=== PATIENT | female | born 1990 | race Caucasian/White ===

== ENCOUNTER → 2020-05-20 | Outpatient (CLI) | payer BC, OTHER | LOC: DIA.ED | DX: O24.419 Gestational diabetes mellitus in pregnancy, unspecified control (principal) | CPT/HCPCS: G0108 ==

== ENCOUNTER → 2020-06-03 | Outpatient (CLI) | payer BC, OTHER | LOC: DIA.ED 09:29 | DX: O24.419 Gestational diabetes mellitus in pregnancy, unspecified control (principal); Z79.4 Long term (current) use of insulin | CPT/HCPCS: G0108 ==

== ENCOUNTER → 2020-06-10 | Outpatient (CLI) | payer BC, OTHER | LOC: DIA.ED 08:40 | DX: O24.419 Gestational diabetes mellitus in pregnancy, unspecified control (principal); Z79.4 Long term (current) use of insulin | CPT/HCPCS: G0108 ==

== ENCOUNTER → 2020-06-28 | Outpatient (CLI) | payer BC, OTHER ==
[~2020-06-28] MED LIST: LANTUS100 U/ML SQ; MOTRIN 800800 MG/TAB PO; PERCOCET 325 MG1 TA2 PO
== END ==
LOC: DIA.ED
DX: O24.419 Gestational diabetes mellitus in pregnancy, unspecified control (principal); Z79.4 Long term (current) use of insulin
CPT/HCPCS: G0108

== ENCOUNTER → 2020-07-14 | Outpatient (CLI) | payer BC, OTHER | LOC: ZCOL.LAB 08:00 | DX: Z20.822 Contact with and (suspected) exposure to COVID-19 (principal) ==

== ENCOUNTER 2020-07-15 09:28 | Inpatient (IN) | payer BC, OTHER ==
[~2020-07-15] VITALS: Ht 160 cm; Wt 96.4 kg
--- NOTE | 2020-07-15 19:00 | NUR ---
Ambulatory to unit for cytotech induction, accompanied by spouse. Oriented to room, monitor, plan of care. Questions invited and answered.
[2020-07-15 19:20] VITALS: BP 131/75; PULSE 108; TEMP 98
[2020-07-15 20:06] LABS: BASO % 0.4 % (0.0-2.0); EOS # 0.1 (0.0-0.7); EOS % 0.6 % (0-4.0); GRAN # 5.8 (1.4-6.5); GRAN % 73.4 % (42.2-75.2); HEMATOCRIT 37.3 % (37.0-47.0); HEMOGLOBIN 12.6 g/dl (12.5-16.0); LYMPH # 1.3 (1.2-3.4); LYMPH % 16.8 % (20.0-51.0); MEAN CELL VOLUME 91 fl (80.0-100.0); MEAN CORPUSCULAR HEMOGLOBIN 31 pg (27.0-31.0); MEAN CORPUSCULAR HGB CONC 34 g/dl (33.0-37.0); MONO # 0.6 (0.1-0.6); MONO % 7.8 % (1.7-9.3); PLATELET COUNT 277 K/mm3 (130-400); RED BLOOD COUNT 4.12 M/mm3 (4.10-5.30); REDCELL DISTRIBUTION WIDTH-CV 13.4 % (11.5-14.5)
[2020-07-15 20:15] VITALS: BP 112/59; PULSE 97
[2020-07-15 20:45] VITALS: BP 110/59; PULSE 100
[2020-07-15] MEDS ORDERED: LANTUS100 U/ML SQ (20:45)
[2020-07-15 21:15] VITALS: BP 108/57; PULSE 96
[2020-07-15 22:00] VITALS: BP 130/73; PULSE 96
[2020-07-16] VITALS (59 sets, daily range): BP systolic 101–162; BP diastolic 54–86; PULSE 67–110; TEMP 98–100.1
--- NOTE | 2020-07-16 00:05 | NUR ---
Pt denies feeling cramps or contractions. Cytotech placed. po Vistaril given, lights dimmed encouraged.
--- NOTE | 2020-07-16 02:30 | NUR ---
Awakened for vitals. Up to void. Denies needs
--- NOTE | 2020-07-16 05:25 | NUR ---
Resting, stirs briefly when nurse @ bedside/monitor.
--- NOTE | 2020-07-16 06:15 | NUR ---
CARE OF THE PT ASSUMED AT THIS TIME. REPORT RECEIVED FROM SHEILA WREN.
--- NOTE | 2020-07-16 06:30 | NUR ---
PT AWAKENS ON THIS NURSE ENTERING THE ROOM. BLOOD SUGAR TAKEN BY PT AND IS 97. UP TO BATHROOM. BACK TO BED AND BACK ON MONITORS. PLAN OF CARE REVIEWED.
--- NOTE | 2020-07-16 07:30 | NUR ---
DR MILLER IN AT 0707. SVE /-2. AROM AT 0710 WITH CLEAR FLUID RETURNED. PERICARE PROVIDED.
--- NOTE | 2020-07-16 08:15 | NUR ---
LR INFUSING PER IV AND PITOCIN STARTED AT 2MU PER ORDER AT 0815
--- NOTE | 2020-07-16 09:30 | NUR ---
PT CRYING WITH CONTRACTIONS. DOES NOT WANT EPIDURAL YET. WANTS TO WAIT 30 MORE MINUTES.
--- NOTE | 2020-07-16 10:15 | NUR ---
PT SITTING UP FOR EPIDURAL. NUNU CORDERO, IN AT 1007 FOR EPIDURAL PLACEMENT. DIFFICULT TO MONITOR FHT'S WHILE PT SITTING UP.
--- NOTE | 2020-07-16 10:30 | NUR ---
SINGLE SHOT AT 1016 WITH NO ABNORMAL SIDE EFFECTS OBSERVED OR REPORTED. PT REPOSITIONED LYING DOWN AFTER EPIDURAL AND FHT'S ABLE TO BE MONITORED AGAIN AFTER EPIDURAL PLACEMENT.
--- NOTE | 2020-07-16 10:45 | NUR ---
CONTRACTIONS VARYING FROM TACHYSYSTOLE TO VERY 4 MINUTES. FHT'S WITH LATE DECEL AFTER EPISODE OF TACHYSYTOLE.
--- NOTE | 2020-07-16 11:00 | NUR ---
TACHYSYSTOLE REMAINS.LATE DECELS REMAIN WELL WITH MODERATE VARIABILITY. FLUID BOLUS STARTED. DR MILLER CALLS AT 1100 AND STATES SHE IS WATCHING THE MONITOR STRIP AND ADVISES TO NOT INCREASE PITOCIN AT THIS TIME.
--- NOTE | 2020-07-16 13:00 | NUR ---
DR MILLER HERE AT 1248. SVE 3-/-2. PITOCIN INCREASED TO 10MU PER DR NAJERA.
--- NOTE | 2020-07-16 14:30 | NUR ---
FHT'S WITH PROLONGED LATE DECEL TO THE 80'S. PITOCIN OFF AT 1421. REPOSITIONED WEDGE RIGHT WITH NO CHANGE AND THEN LEFT LATERAL WITH INCREASE IN HEART TONES GRADUALLY TO THE 150'S OVER 2 1/2 MINUTES. FLUID BOLUS INFUSING.
--- NOTE | 2020-07-16 14:45 | NUR ---
DR MILLER CALLED HERE AT 1440 ASKING IF THE PITOCIN IS OFF, REPORTED TURNED IT OFF WITH THE PROLONGED DECELERATIONS THAT WERE OCCURRING, REPOSITIONED PT LEFT LATERAL SO CONTRACTIONS ARE DIFFICULT TO MONITOR. WANTS PITOCIN TURNED BACK ON TO 10MU SINCE IT HAS NOT BEEN 30" SINCE IT WAS TURNED OFF. ASKED "YOU WANT THE PITOCIN TURNED BACK ON EVEN WITH PROLONGED LATE DECELS" AND STATES "YES BECAUSE THE HEART TONES ARE BACK UP." PITOCIN BACK ON 10MU AT 1443
--- NOTE | 2020-07-16 15:00 | NUR ---
PROLONGED LATE DECEL. REPOSITIONED PT TO WEDGE RIGHT AND ADJUSTED TOCO STRAPS IN ATTEMPT TO MONITOR CONTRACTIONS BETTER.
--- NOTE | 2020-07-16 15:15 | NUR ---
SVE 6-7/100/-2. CONTINUES WITH MODERATE VARIABILITY AND PROLONGED LATE DECELS. PHONED DR MILLER AT 1506 WITH THE ABOVE INFORMATION. SHE WANTS THE PITOCIN TO REMAIN AT 10MU
--- NOTE | 2020-07-16 15:45 | NUR ---
FHT'S DIFFICULT TO MONITOR. AUDIBLE IN THE 50'S. SVE 9-10/100/-2. PITOCIN OFF AT 1540 PRIOR TO SVE. REPOSITIONED LEFT LATERAL WITH RIGHT LEG IN STIRRUP. CALLED DR MILLER AT 1543 AND SPOKE WITH NURSE,JANIE, INFORMING OF DECEL TO THE 50'S AND SVE.
--- NOTE | 2020-07-16 15:48 | NUR ---
PITOCIN BACK ON AT 10MU FHT'S BACK TO 145 BASELINE.
--- NOTE | 2020-07-16 16:15 | NUR ---
DR MILLER CALLS AT 1614-SVE STATUS GIVEN. SHE WANTS PT CHECKED AND IF COMPLETE START PUSHING.
--- NOTE | 2020-07-16 16:30 | NUR ---
SVE /+1. PHONED DR MILLER AT 1620 WITH UPDATE ON SVE. PUSHING STARTED AT 162
--- NOTE | 2020-07-16 17:30 | NUR ---
DR MILLER CALLED AT 1728 SHE IS WONDERING ABOUT STATUS OF PUSHING. TOLD PUSHING IS GOING FAIR, THIS RN DOES NOT THINK BABY WILL DELIVERY IN THE NEXT HOUR. DR CONCERNED ABOUT TACHYCARDIA. MATERNAL TEMP 100.1. DR ON HER WAY TO EVALUATE
--- NOTE | 2020-07-16 17:45 | NUR ---
HEART RATE BASELINE 170. MATERNAL TEMP 99.3. DR MILLER HERE TO EVALUATE PUSHING AT 1740.
--- NOTE | 2020-07-16 18:00 | NUR ---
ANCEF 2MG GIVEN VIA IV PUMP PER DR MILLER'S ORDER.
--- NOTE | 2020-07-16 18:15 | NUR ---
DR MILLER IN AT 180. FHT'S DOWN TO THE 70'S. UNABLE TO MONITOR FHT'S ADEQUATELY. DR WANTS VACUUM TO BE USED FOR DELIVERY. PT PREPPED AND POSITIONED FOR DELIVERY. VACUUM APPLIED BY DR MILLRE. RIGHT MEDIOLATERAL EPISIOTOMY CUT BY AFTER 6 PULLS AND ONE POPOFF DELIVERY OF FEMALE AT 1812. TIGHT NUCHAL CORD REDUCED AFTER DELIVERY OF HEAD. DR REPORTED THE CORD RIPPED WHILE SHE WAS REDUCING IT. CORD CLAMPED AND CUT AND BABY TO RADIANT WARMER IMMEDIATELY. PITOCIN OFF AFTER DELIVERY OF BABY. DELIVERY OF PLACENTA SPONTANEOUSLY AT 1813. PT FEELING GREAT DEAL OF PAIN WHEN DR STARTS TO DO PERINEAL REPAIR. Jaspal LONDONO CRNA, IN TO DOSE EPIDURAL FOR REPAIR. PITOCIN STARTED AT 333ML/HR AFTER DELIVERY OF . DR MILLER ORDERED CORD GASES TO BE OBTAINED. Janak WILLIAMSON RN, AND Sofya JARRELL RN, ATTEMPTED TO OBTAIN CORD GASES WITHOUT SUCCESS DUE TO THE UMBILICAL CORD BEING RIPPED WHILE THE DR WAS REDUCING THE NUCHAL CORD. CORD BLOOD ALSO UNABLE TO BE OBTAINED FOR BLOOD TYPING.
--- NOTE | 2020-07-16 18:30 | NUR ---
REPAIR COMPLETE BY DR. LOMBARDO PERFORMED. ICE PACK TO PERINEUM. PT RESTING IN BED. FUNDUS FIRM WITH MINIMAL BLEEDING OBSERVED.
--- NOTE | 2020-07-16 18:45 | NUR ---
1845- FUNDUS UP AND TO THE LEFT, FIRM. STRAIGHT CATH FOR 150ML. FUNDUS AT UMBILICUS AFTER STRAIGHT CATH. URETHRAL AND CLITORAL AREA EDEMATOUS AND BRUISED. ANATOMY DIFFICULT TO IDENTIFY. DISCUSSED WITH PT THE POSSIBILITY OF HER HAVING A HARD TIME URINATING ON HER OWN DUE TO SWELLING. PT TOLERATED WELL.
--- NOTE | 2020-07-16 21:00 | NUR ---
2100- IV TO SALINE LOCK. PT ABLE TO LIFT LEGS UP OFF BED AND WOULD LIKE TO GO TO NURSERY TO SEE BABY. PT POSITIONED DANGLING ON EDGE OF BED. EPIDURAL CATHETER REMOVED CHARTED. NURSE ASSISTS PT TO STAND AND PIVOT INTO WHEELCHAIR. CLEAN PAD AND PANTIES PROVIDED AT THIS TIME WELL. PT TOLERATED WELL. PT TO NURSERY PER WHEELCHAIR WITH SPOUSE. PT DENIES FURTHER NEEDS AT THIS TIME. BELONGINGS MOVED TO ROOM 207.
[2020-07-17 03:40] VITALS: BP 111/69; PULSE 97; TEMP 97.9
[2020-07-17 07:30] VITALS: BP 129/7; PULSE 86; TEMP 98
[2020-07-17] MEDS ORDERED: MOTRIN 800800 MG/TAB PO (07:49)
[2020-07-17] MEDS ORDERED: PERCOCET 325 MG1 TA2 PO (07:49)
== END 2020-07-17 11:30 | disposition home or self-care (01) | DRG 805 ==
LOC: OB 09:28 → LDR 18:52 → OB 07-16 08:02
PROVIDERS: ADMIT Obstetrics & Gynecology
PROC: 10D07Z6 Extraction of Products of Conception, Vacuum, Via Natural or Artificial Opening (ICD-10-PCS; principal; 2020-07-16)
PROC: 10907ZC Drainage of Amniotic Fluid, Therapeutic from Products of Conception, Via Natural or Artificial Opening (ICD-10-PCS; 2020-07-16)
PROC: 3E0P7VZ Introduction of Hormone into Female Reproductive, Via Natural or Artificial Opening (ICD-10-PCS; 2020-07-16)
PROC: 0W8NXZZ Division of Female Perineum, External Approach (ICD-10-PCS; 2020-07-16)
DX: O24.424 Gestational diabetes mellitus in childbirth, insulin controlled (principal); O41.1230 Chorioamnionitis, third trimester, not applicable or unspecified; Z37.0 Single live birth; Z3A.38 38 weeks gestation of pregnancy; O99.214 Obesity complicating childbirth; E66.9 Obesity, unspecified; O70.1 Second degree perineal laceration during delivery
CPT/HCPCS: J0690; J1580; J1815; J2400; J2590; J3010; J7120